=== PATIENT | female | born 1990 ===

== ENCOUNTER 2021-12-31 12:12 | Outpatient (CLI) | payer MEDICAID ==
--- NOTE | 2021-12-31 16:46 | XRay Report ---
XR forearm RT INDICATION / CLINICAL INFORMATION: ENCOUNTER FOR REMOVAL OF INTERNAL FIXATION DEVICE. COMPARISON: None available. FINDINGS: BONES/JOINT(S): No acute fracture or subluxation. Fixation hardware is seen in the distal radius and ulna without appreciable hardware fracture. SOFT TISSUES: No significant abnormality. ADDITIONAL FINDINGS: None. Signer Name: Kiel Jiang MD Signed: 12/31/2021 4:42 PM Workstation Name: [id number]
== END 2021-12-31 12:13 | disposition home or self-care (01) ==
LOC: XRAY 12:12
PROVIDERS: ATTEND Orthopaedic Surgery
DX: Z47.2 Encounter for removal of internal fixation device (principal)

== ENCOUNTER 2022-01-22 08:06 | Day surgery (SDC) | payer MEDICAID ==
[~2022-01-22 08:06] MED LIST: ceFAZolin/Water 2 GM/20 ML 2 GM/20 ML SYRINGE IV NR; fentaNYL 100 MCG/2 ML INJ IV SCH
[2022-01-22] MEDS ORDERED: BUPIVACAINE/PF (0.5%) 5 MG/1 ML 30 ML VIAL INFILTRATI ONE (08:26)
[2022-01-22] MEDS ORDERED: dexAMETHasone 4 MG/ML VIAL ONE (08:26)
[2022-01-22] MEDS ORDERED: LACTATED RINGERS 1,000 ML ONE ×2 (08:44→11:34)
--- NOTE | 2022-01-22 08:59 | Anesthesia Day of Surgery ---
Anesthesia Day of Surgery - Day of Surgery Patient Examined: Yes Patient H&P Reviewed: Yes Patient is NPO: Yes
--- NOTE | 2022-01-22 08:59 | Anesthesia Consultation ---
Anesthesia Consult and Med Hx Date of service: 01/22/22 - Airway Anesthetic Teeth Evaluation: Good ROM Head & Neck: Adequate Mental/Hyoid Distance: Adequate Mallampati Class: Class I Intubation Access Assessment: Good - Pulmonary Exam CTA: Yes - Cardiac Exam Cardiac Exam: RRR - Pre-Operative Health Status ASA Pre-Surgery Classification: ASA1 Proposed Anesthetic Plan: General Nerve Block: supraclavicular - Pulmonary Hx Smoking: No Hx Asthma: No Hx Respiratory Symptoms: No Hx Sleep Apnea: No (YONI PRE SCREEN LOW RISK) - Cardiovascular System Hx Hypertension: No Hx Heart Attack/AMI: No - Central Nervous System Hx Neuromuscular Disorder: No Hx Psychiatric Problems: No - Gastrointestinal Hx Gastroesophageal Reflux Disease: No - Endocrine Hx Renal Disease: No Hx Liver Disease: No Hx Non-Insulin Dependent Diabetes: No Hx Thyroid Disease: No - Hematic Hx Anemia: No Hx Sickle Cell Disease: No - Other Systems Hx Alcohol Use: Yes (RARE WINE) Hx Substance Use: No Hx Cancer: No Hx Obesity: No - Additional Comments Anesthesia Medical History Comments: no hx of anesthetic complications
[2022-01-22] MEDS ORDERED: MIDAZOLAM 2 MG/2 ML INJ ONE (09:03)
[2022-01-22] MEDS ORDERED: fentaNYL 100 MCG/2 ML INJ ONE ×2 (09:04→09:31)
[2022-01-22] MEDS ORDERED: LIDOCAINE MPF (2%) 20 MG/1 ML VIAL 5 ML ONE (09:30)
[2022-01-22] MEDS ORDERED: HYDROmorphone 1 MG/1 ML INJ IV PRN ×2 (09:30)
[2022-01-22] MEDS ORDERED: LACTATED RINGERS 1,000 ML IV SCH (09:30)
[2022-01-22] MEDS ORDERED: ONDANSETRON 4 MG/2 ML INJ IV PRN (09:30)
[2022-01-22] MEDS ORDERED: propofoL 200 MG/20 ML VIAL IV ONE (09:31)
[2022-01-22] MEDS ORDERED: MIDAZOLAM 2 MG/2 ML INJ IV NR (10:00)
[2022-01-22] MEDS ORDERED: ONDANSETRON 4 MG/2 ML INJ ONE (11:11)
[2022-01-22] MEDS ORDERED: dexAMETHasone 20 MG/5 ML VIAL ONE (11:11)
[2022-01-22] MEDS ORDERED: ePHEDrine SULFATE 50 MG/1 ML INJ ONE (11:18)
[2022-01-22] MEDS ORDERED: SODIUM CHLORIDE 0.9% IRR 1,500 ML BOTTLE IR ONE (11:31)
[2022-01-22] MEDS ORDERED: PHENYLEPHRINE/NS 1,000 MCG/10 ML SYRINGE (OR USE) IV ONE (11:34)
--- NOTE | 2022-01-22 13:32 | Procedure Note ---
Date of procedure: 01/22/22 Pre-op diagnosis: Hardware irritation right forearm status post ORIF Post-op diagnosis: same Procedure: Removal of hardware right forearm Procedure The patient was brought to the OR after being given a scalene nerve block in preop holding neck she was placed on the OR table supine. Following induction with MAC anesthesia the patient's right upper extremity was prepped and draped in the usual sterile manner. A timeout procedure was done to identify the patient and the correct operative site. The arm was exsanguinated followed by inflation of the pneumatic tourniquet to 250 mmHg. The radial plate was approached first using a volar incision previously this was then taken down sharply through skin subcu which brought us down onto the plate following extraction of the screws the metal plate was then removed without complications the screw tracts were debrided with curettes and rongeurs this was followed by copious irrigation next the ulnar incision was approached along the dorsal aspect this was then taken down sharply through skin subcu the proximal ulnar plate was removed without complications the smaller mini frag plate to the distal ulna however was more difficult after multiple attempts at screw removal decision was made to remove the plate using our oscillating saw and cutting the screw heads the plate was then subsequently removed using this technique the wound again was then copiously irrigated and was closed in a standard routine fashion postop dressings were applied AP and lateral images were obtained showing removal of of the plates and screws with to remaining broken screws in the distal ulnar following closure the wound postop dressings were applied patient tolerated procedure there were no complications she was then taken to postanesthesia recovery in a stable condition Anesthesia: MAC, regional Surgeon: LISSET MEMBRENO (Edgard Oates, 1st assist) Estimated blood loss: minimal Pathology: none Condition: stable Disposition: PACU
--- NOTE | 2022-01-22 13:41 | XRay Report ---
INTRAOPERATIVE FLUOROSCOPY: INDICATION / CLINICAL INFORMATION: PAINFUL HARDWARE. TECHNIQUE: Intraoperative spot images were obtained during the procedure. FINDINGS: Images acquired intraoperatively were interpreted by the operative physician at the time of acquisiti on. Fluoroscopy Time: 5 seconds. Total dose: Not listed mGy. Fluoroscopy Images: 2. Signer Name: Jose Hameed II, MD Signed: 01/22/2022 1:36 PM Workstation Name: [id number]
[2022-01-22] MEDS ORDERED: KETOROLAC 30 MG/1 ML INJ ONE (14:17)
--- NOTE | 2022-01-22 17:38 | Post Anesthesia Evaluation ---
- Post Anesthesia Evaluation Patient Participated: Yes Airway Patent: Yes Stable Respiratory Function: Yes Nausea/Vomiting: No Temp > 96.8F: Yes Pain Manageable: Yes Adequeate Hydration: Yes Anesthesia Complications: No Block Receding Appropriately: Yes Patient on Ventilator: No
[2022-01-22 19:07] VITALS: BP 103/69
== END 2022-01-22 08:07 | disposition home or self-care (01) ==
LOC: OR 08:06
PROVIDERS: ATTEND Orthopaedic Surgery
DX: T84.89XA Other specified complication of internal orthopedic prosthetic devices, implants and grafts, initial encounter (principal); Z79.899 Other long term (current) drug therapy; Z72.89 Other problems related to lifestyle; Z98.890 Other specified postprocedural states; Y82.8 Other medical devices associated with adverse incidents; Y92.89 Other specified places as the place of occurrence of the external cause
CPT/HCPCS: 20680; 64415; 73100; 81025; 88300; J0690; J1100; J1885; J2250; J2370; J2405; J2704; J3010; J3490; J7120; 64450; 88302